=== PATIENT | male | born 1960 | race Caucasian/White ===

== ENCOUNTER 2020-08-21 14:34 | Outpatient (REF) | payer SELFPAY | END 2020-08-21 14:35 | disposition home or self-care (01) | LOC: HO.HAP 14:34 | PROVIDERS: Visit Provider Internal Medicine | DX: H90.3 Sensorineural hearing loss, bilateral (principal); H61.23 Impacted cerumen, bilateral | CPT/HCPCS: 92700 ==

== ENCOUNTER 2020-09-03 14:37 | Outpatient (REF) | payer SELFPAY | END 2020-09-03 14:38 | disposition home or self-care (01) | LOC: HO.HAP 14:37 | PROVIDERS: Visit Provider Internal Medicine | DX: Z13.89 Encounter for screening for other disorder (principal) ==

== ENCOUNTER 2023-03-23 13:49 | Outpatient (REF) | payer SELFPAY ==
--- NOTE | 2023-03-23 14:36 | MHC.AU.CER ---
Cerumen Removal- Binaural Date of Visit: 03/23/23 Medical Conditions: No Conditions of Concern for Cerumen Removal Medications: No Medications of Concern for Cerumen Removal Procedure: Right Ear: Unusual Findings: No Unusual Findings Prior to Removal: Minimal Cerumen Present Other: Did not require cerumen removal Left Ear: Unusual Findings: No Unusual Findings Prior to Removal: Significant Cerumen Present Outcome of Procedure: Most cerumen was removed. Tympanic membrane is now visible. Other: Slight abrasion in interior portion of canal - No active bleeding Recommendations: Follow-up as needed Diagnosis Code(s): Primary Diagnosis: H90.3 Bilateral Sensorineural Hearing Loss Services Performed: Cerumen Removal (CPT 64530) One Ear Signature: Provider: Zachariah Zamarripa, [facility]
--- NOTE | 2023-03-23 14:44 | MHC.AU.HA3 ---
Hearing Instrument Follow-Up- Binaural Date of Visit: 03/23/23 Right Ear: Tyler, Model, Color, Serial Number: Mariah Miller M70-R SN: [id number] Color: Onyx [employer] Repair Warranty: 07/13/2022 [employer] Loss and Damage Warranty: 07/13/2022 Battery Size: Rechargeable Kettle Firer/Slim Tube: 1M Earmold/Dome/CShell/SlimTip:Small open dome (no retention tail) Type of Wax Guard: Cerushield Dispensed By: [facility] Date of Fittin04/19/2019 Left Ear: Tyler, Model, Color, Serial Number: Mariah Miller M70-R SN: [id number] Color: Onyx [employer] Repair Warranty: 07/13/2022 [employer] Loss and Damage Warranty: 07/13/2022 Battery Size: Rechargeable Kettle Firer/Slim Tube: 1M Earmold/Dome/CShell/SlimTip: Small open dome (no retention tail) Type of Wax Guard: Cerushield Dispensed By: [facility] Date of Fittin04/19/2019 Follow-Up Summary: Refugio reported his right wax guard is stuck in the rehab office coordinator. Could not be removed with [employer]uDisk. Cleaned both hearing aids. Replaced wax guards and domes - Used dental pick to remove right wax guard. Vacuumed microphones - Lots of dust/debris noted in microphones prior to cleaning. Ran through dehumidifier. Listening check showed hearing aids amplifying clearly. Refugio noticed improvement in sound quality in office. Also performed cerumen removal on left ear - see separate note. 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 His last hearing test was reportedly about one year ago, which showed a slight, although reportedly not significant, change in his hearing. Advised that hearing aids can be reprogrammed based on updated hearing tests, as necessary. Recommendations: Hearing instrument follow-up or maintenance as needed. Please contact our clinic with any questions or concerns. Diagnosis Code(s): Primary Diagnosis: H90.3 Bilateral Sensorineural Hearing Loss Signature: Provider: Zachariah Zamarripa, [facility]
== END 2023-03-23 13:50 | disposition home or self-care (01) ==
LOC: HO.HAP 13:49
PROVIDERS: Visit Provider Internal Medicine
DX: Z46.1 Encounter for fitting and adjustment of hearing aid (principal); H90.3 Sensorineural hearing loss, bilateral
CPT/HCPCS: 92593; 92700

== ENCOUNTER 2023-10-16 10:41 | Outpatient (REF) | payer SELFPAY | END 2023-10-16 10:42 | disposition home or self-care (01) | LOC: HO.HAP 10:41 | PROVIDERS: Visit Provider Internal Medicine | DX: Z46.1 Encounter for fitting and adjustment of hearing aid (principal); H90.3 Sensorineural hearing loss, bilateral | CPT/HCPCS: V5267; V5299 ==

== ENCOUNTER 2024-02-23 10:53 | Outpatient (REF) | payer SELFPAY ==
--- NOTE | 2024-02-23 13:13 | MHC.AU.HA3 ---
Hearing Instrument Follow-Up- Binaural Date of Visit: 02/23/24 Right Ear: Tyler, Model, Color, Serial Number: Mariah Miller M70-R SN: [id number] Color: [employer] Repair Warranty: 07/13/2022 [employer] Loss and Damage Warranty: 07/13/2022 [facility] Service Plan: exp Battery Size: Rechargeable Coating Machine Feeder/Slim Tube: 1M Earmold/Dome/CShell/SlimTip:Small vented (no retention tail) Type of Wax Guard: Cerustop Dispensed By: [facility] Date of Fittin04/19/2019 Left Ear: Tyler, Model, Color, Serial Number: Mariah Miller M70-R SN: [id number] Color: Success [employer]rel [employer] Repair Warranty: 07/13/2022 [employer]rel [employer] Loss and Damage Warranty: 07/13/2022 [facility] Service Plan: exp Battery Size: Rechargeable Coating Machine Feeder/Slim Tube: 1M Earmold/Dome/CShell/SlimTip: Small vented (no retention tail) Type of Wax Guard: Cerustop Dispensed By: [facility] Date of Fittin04/19/2019 Follow-Up Summary: Refugio is seen for hearing aid adjustment. Reports he has had general difficulty hearing, even with hearing aids in. Brought a new test from ENT. Cleaned and checked aids, found wax guards occluded, debris in mics. Listening check positive after cleaning. Swapped from small open to small vented domes. Ran feedback, dome change allowed for increased gain. Improvement reports. Refugio noted he has had trouble with dome fit in past, different styles have been uncomfortable. He will try this configuration, return if problems arise. Recommendations: Recommendations: Hearing instrument follow-up or maintenance as needed. Diagnosis Code(s): Primary Diagnosis: H90.3 Bilateral Sensorineural Hearing Loss Signature: Provider: Zachariah Laura, [facility]
== END 2024-02-23 10:54 | disposition home or self-care (01) ==
LOC: HO.HAP 10:53
PROVIDERS: Visit Provider Internal Medicine
DX: Z46.1 Encounter for fitting and adjustment of hearing aid (principal); H90.3 Sensorineural hearing loss, bilateral
CPT/HCPCS: 92593